=== PATIENT | male | born 1970 | race Caucasian/White ===

== ENCOUNTER 2020-06-02 14:39 | Outpatient (CLI) | payer OTHER, SELFPAY ==
--- NOTE | 2020-06-02 14:05 | DI.RAD_ITS ---
EXAM: XR STANDING ALIGNMENT CLINICAL HISTORY: bilateral knee DJD. TECHNIQUE: 2D digital imaging was performed. COMPARISON: CR XR KNEE RT 1V from 06/02/2020 CR XR KNEE LT 1V from 06/02/2020 FINDINGS: The hips are unremarkable. Marked degenerative changes are seen in the left knee characterized by zohra int space narrowing, subchondral sclerosis and periarticular spurring. Findings are most marked in t he medial femoral tibial and patellofemoral joints. Tiny ossific densities are seen superior to the patella and may be loose bodies. Marked degenerative changes are also noted in the right knee with j oint space narrowing, subchondral sclerosis and periarticular spurring. The findings are most marked at the patellofemoral joint. There is an ossific density superior to the knee which may represent a loose body. No significant leg length discrepancy is noted. IMPRESSION: Severe degenerative changes of the knees bilaterally. DATA REPOSITORY: RADIATION DOSE DELIVERED:
== END 2020-06-02 14:59 ==
PROVIDERS: PCP Physical Therapist; Referring Provider Physical Therapist; Visit Provider Physician Assistant
DX: M17.0 Bilateral primary osteoarthritis of knee (principal)
CPT/HCPCS: 73560; 77073

== ENCOUNTER 2022-11-29 10:50 | Outpatient (CLI) | payer OTHER, SELFPAY ==
--- NOTE | 2022-11-29 10:45 | DI.RAD_ITS ---
Exam(s) XR KNEE LT 1V XR STANDING ALIGNMENT XR KNEE RT 1V EXAM: XR STANDING ALIGNMENT and XR knee bilateral 1 V CLINICAL HISTORY: bilateral knee DJD. TECHNIQUE: 2D digital imaging was performed. Six images were obtained. COMPARISON: CR XR STANDING ALIGNMENT from 06/02/2020 CR XR KNEE LT 1V from 06/02/2020 CR XR KNEE RT 1V from 06/02/2020 FINDINGS: BONES: The hips are well maintained. There are marked degenerative changes again seen in the left kn ee characterized by joint space narrowing and periarticular spurring. The findings are most marked i n the patellofemoral joint and the medial femoral tibial joint. There is a joint effusion in the lef t knee. Dystrophic calcifications are seen superior to the patellofemoral joint on the lateral view. These may be loose bodies. There have increased in size compared to the prior examination. In the right knee there are marked degenerative changes present characterized by joint space narrowing and periarticular spurring. The findings are marked in the patellofemoral joint. The suprapatellar calc ifications have increased in size compared to the prior examination. There are genu varus deformitie s of the knees again seen bilaterally. The ankles are well maintained.There is no significant leg le ngth discrepancy. SOFT TISSUE: Normal. IMPRESSION: Marked degenerative changes of the knees bilaterally, left greater than right. DATA REPOSITORY: RADIATION DOSE DELIVERED:
== END 2022-11-29 10:51 | disposition home or self-care (01) ==
LOC: DIORS 10:50
PROVIDERS: PCP Physical Therapist; Visit Provider Physician Assistant
DX: M17.11 Unilateral primary osteoarthritis, right knee (principal); M17.12 Unilateral primary osteoarthritis, left knee
CPT/HCPCS: 73560; 77073

== ENCOUNTER 2023-02-15 07:19 | Observation (INO) | payer OTHER, SELFPAY ==
[2023-02-15] VITALS (9 sets, daily range): BP systolic 98–122; BP diastolic 63–88; PULSE 70–111; RESP 14–20; TEMP 36.2–36.9; O2SAT 92–97; BMI 30.4
[2023-02-15] MEDS: Celecoxib 200 MG CAP 400 MG PO (08:12)
[2023-02-15] MEDS: Acetaminophen 500 MG TAB 1000 MG PO ×2 (08:12→19:03)
[2023-02-15] MEDS: Gabapentin 300 MG CAP PO ×2 (08:12→21:09)
[2023-02-15] MEDS: Lactated Ringers 1,000 ML 80 ML IV ×2 (08:36→13:12)
--- NOTE | 2023-02-15 08:53 | W.ANESPRE ---
General Info Date of Service Date Performed: 02/15/23 Height: 5 ft 11 in Weight: 98.974 kg Body Mass Index (BMI): 30.4 Surgical Procedure: Operation Date: 02/15/23 09:50 Proposed Procedure Side Surgeon p Knee Total Arthroplasty Bilateral Cementless CR (maybe PS) Bilateral Kip Titus MD Meds Allergies and Home Medications Allergies Allergy/AdvReac Type Severity Reaction Status Date / Time No Known Allergies Allergy Verified 02/15/23 07:40 Home Medication Medication Instructions Recorded meloxicam 15 mg tablet (Mobic) 15 mg PO DAILY 06/02/20 acetaminophen 650 mg tablet 650 mg PO BID PRN 02/14/23 buprenorphine HCl 8 mg sublingual 8 mg sublingual DAILY 02/14/23 tablet bupropion HCl 150 mg 24 hr tablet, 75 mg PO DAILY 02/14/23 extended release clonidine HCl 0.2 mg tablet 0.2 mg PO DAILY 02/14/23 diphenhydramine HCl 50 mg tablet 50 mg PO DAILY 02/14/23 hydroxyzine HCl 50 mg tablet 50 mg PO DAILY 02/14/23 melatonin 3 mg tablet 3 mg PO DIRECTED 02/14/23 methylphenidate HCl 30 mg biphasic 30 mg PO DAILY 02/14/23 30-70 capsule,extended release pantoprazole 40 mg tablet,delayed 40 mg PO DAILY 02/14/23 release Current Visit Medications: Current Medications Generic Name Dose Route Start Last Admin Trade Name Ashleigh PRN Reason Stop Dose Admin Acetaminophen 1,000 mg 02/15/23 06:00 02/15/23 08:12 Acetaminophen 500 Mg Tab PO 03/17/23 05:59 1,000 mg PREOP TRAVIS Administration Acetaminophen 1,000 mg 02/15/23 08:30 Acetaminophen 500 Mg Tab PO 03/17/23 08:29 TID TRAVIS Aspirin 81 mg 02/15/23 08:30 Aspirin E.C. 81 Mg Tabec PO 03/17/23 08:29 BID TRAVIS Celecoxib 400 mg 02/15/23 06:00 02/15/23 08:12 Celecoxib 200 Mg Cap PO 03/17/23 05:59 400 mg PREOP TRAVIS Administration Celecoxib 200 mg 02/15/23 08:30 Celecoxib 200 Mg Cap PO 03/17/23 08:29 BID [facility] Dexamethasone 4 mg 02/15/23 08:30 Dexamethasone 4 Mg Tab PO 02/16/23 08:31 DAILY TRAVIS Docusate Sodium 100 mg 02/15/23 07:19 Docusate Sodium 100 Mg Cap PO 03/17/23 07:18 BID PRN PRN Constipation Gabapentin 300 mg 02/15/23 06:00 02/15/23 08:12 Gabapentin 300 Mg Cap PO 03/17/23 05:59 300 mg PREOP TRAVIS Administration Gabapentin 300 mg 02/15/23 22:00 Gabapentin 300 Mg Cap PO 03/17/23 21:59 HS TRAVIS Hydromorphone HCl 0.5 mg 02/15/23 07:19 Hydromorphone 2 Mg/Ml Syr IVP 03/17/23 07:18 Q2H PRN PRN Tranexamic Acid 1,000 mg/ 60 mls @ 360 mls/hr 02/15/23 06:00 Sodium Chloride IVPB 02/15/23 18:00 PREOP TRAVIS Tranexamic Acid 1,000 mg/ 60 mls @ 360 mls/hr 02/15/23 06:00 Sodium Chloride IVPB 02/15/23 18:00 DIRECTED TRAVIS Ringer's Solution 1,000 mls @ 80 mls/hr 02/15/23 06:00 02/15/23 08:36 IV 03/16/23 23:59 80 mls/hr INFUSION TRAVIS Administration Cefazolin Sodium/Dextrose 2 gm in 50 mls @ 100 mls/hr 02/15/23 06:00 Ancef Duplex IVPB 03/16/23 23:59 PREOP TRAVIS Cefazolin Sodium/Dextrose 1 gm in 50 mls @ 100 mls/hr 02/15/23 08:00 Ancef Duplex IVPB 02/16/23 00:29 Q8H TRAVIS IV Miscellaneous Supplies 1 each 02/15/23 06:00 Iv Access IV 03/16/23 23:59 DIRECTED TRAVIS Ondansetron HCl 4 mg 02/15/23 07:19 Ondansetron 4 Mg/2 Ml Vial IVP 03/17/23 07:18 Q6H PRN PRN Nausea Oxycodone HCl 0 mg 02/15/23 07:19 Oxycodone 5 Mg Tab PO 03/17/23 07:18 Q3H PRN PRN Pain Pantoprazole Sodium 40 mg 02/15/23 07:30 Pantoprazole 40 Mg Tabcr PO 03/17/23 07:29 DAILY@0730 [facility] Polyethylene Glycol 17 gm 02/15/23 07:19 Polyethylene Glycol 3350 17 Gm Packet PO 03/17/23 07:18 BID PRN PRN Constipation Sodium Chloride 0 ml 02/15/23 06:00 Normal Saline Flush 10 Ml Syr IV 03/16/23 23:59 PRN PRN Sodium Chloride 0 ml 02/15/23 06:00 Normal Saline 10 Ml Vial IJ 03/16/23 23:59 DIRECTED PRN Sterile Water 0 ml 02/15/23 06:00 Water,Injection,Sterile 10 Ml Vial IJ 03/16/23 23:59 DIRECTED PRN PFSH Active Problems Active Problems: Problem Status Onset Code Left knee DJD M17.12 Degenerative joint disease of right knee M17.11 Medical History Medical History ADHD Anxiety GERD (gastroesophageal reflux disease) Hx of opioid abuse Surgical History Surgical History Hx of adenoidectomy Hx of inguinal hernia repair Hx of meniscectomy of right knee Surgical history unknown Tobacco Smoking/Tobacco Use Status: Former Tobacco Use Alcohol Alcohol Intake: never Substance Use Substance use: Current Sobriety Vital Signs and Lab Results Vital Signs Most Recent Vital Signs in EMR: Most Recent Vital Signs Temp Pulse Resp BP Pulse Ox 36.6 C 79 16 119/83 95 02/15/23 07:43 02/15/23 07:43 02/15/23 07:43 02/15/23 07:43 02/15/23 07:43 Lab Results Blood Type / Crossmatch: No Data to Display Complete Blood Count: No Data to Display Complete Metabolic Panel: No Data to Display Liver Function Panel: No Data to Display Coagulation Panel: No Data to Display Cardiac Panel: No Data to Display Arterial Blood Gas: No Data to Display Venous Blood Gas: No Data to Display Pancreas Panel: No Data to Display Thyroid Panel: No Data to Display Infectious Disease: No Data to Display Blood Cultures: No Data to Display Toxicology Panel: No Data to Display Anesthesia Assessment and Plan Anesthesia History Personal History: No History of Anesthesia Complications Family History: Family History Unknown Exercise Tolerance Exercise Tolerance: Metabolic Equivalents>4 Pertinent Negatives Pertinent Negatives: No Symptoms of GERD Cardiac & Pulmonary Exam Cardiac Exam: Normal S1/S2 Heart Sounds Pulmonary Exam: Clear Bilateral Breath Sounds Implantable Cardiac Device Does patient have a Pacemaker or an ICD?: No Airway Exam Known Difficult Airway: No Mallampati Class: 1 Mouth Opening: Normal (> 3cm) Thyromental Distance: Greater than 3 cm Neck Range of Motion: Full ROM Neck Circumference: Normal Teeth Condition: Normal Dentition ASA Classification ASA Score: ASA 2 Emergency Case?: No NPO Status NPO Status: NPO Clears >2 hours, Solids >8 hours Anesthesia Plan Resuscitation Status: Full Code Anesthesia Technique: Spinal Anesthesia Airway Planned: Natural Airway Monitors Used: Standard Monitors
[2023-02-15] MEDS: Bupivacaine 0.5% Pres-Free 30 ML VIAL (09:26)
[2023-02-15] MEDS: Bupivacaine 0.25% Pres-Free 10 ML VIAL (09:36)
[2023-02-15] MEDS: ceFAZolin 2 GM/50 ML BAG IVPB (10:02)
--- NOTE | 2023-02-15 10:45 | W.ANESNERVE ---
Nerve Block Single Injection Procedure Date and Time Date Performed: 02/15/23 Procedure Start: 09:26 Location Where Procedure Performed Procedure Location: Day Surgery Unit Reason Performed: Postoperative Analgesia Requesting Provider: Kip Titus Timeout Performed Timeout Performed: Yes Monitoring Used ECG, Blood Pressure and SpO2 Sterility Sterility: Hand Hygiene, Surgical Cap, Surgical Mask, Sterile Gloves, Eye Protection and Chlorhexidine Sedation Given During Procedure Sedation Given (Indicate Dose Given): Versed IV Dose:: 5mg Patient Mental Status Patient Mental Status: Sedate with meaningful communication Nerve Block 1st Nerve Block: Laterality: Right Block Type: Adductor Canal Ultrasound Image Saved?: Yes Needle / Catheter Used: 100mm SonoPlex II Local Anesthetic Bolus (Indicate Dose Given): Lidocaine used for local infiltration of skin (1cc/2%), Injected in 3-5ml increments after negative blood aspiration and Bupivacaine 0.25% with Epinephrine (1:200,000) Dose:: 50mg/20cc Additives (Indicate Dose Given): Decadron Dose:: 4mg Ultrasound: Sterile probe cover and gel used Nerve Stimulator: Not Used Paresthesia: None Procedure Tolerated: No Complications Procedure Outcome: Successful Performed By: Chip Mendenhall 2nd Nerve Block: Laterality: Left Block Type: Adductor Canal Ultrasound Image Saved?: Yes Needle / Catheter Used: 100mm SonoPlex II Local Anesthetic Bolus (Indicate Dose Given): Lidocaine used for local infiltration of skin (1cc/2%) and Bupivacaine 0.25% with Epinephrine (1:200,000) Dose:: 20cc/50mg Additives (Indicate Dose Given): Decadron Dose:: 4mg Ultrasound: Sterile probe cover and gel used Nerve Stimulator: Not Used Paresthesia: None Procedure Tolerated: No Complications Procedure Outcome: Successful Performed By: Chip Mendenhall
--- NOTE | 2023-02-15 13:53 | W.ANESPOSTOP ---
Postoperative Evaluation Date, Time and Location Date Performed: 02/15/23 Time Performed: 13:53 Patient Location: PACU Vital Signs Most Recent Imported Vital Signs: Most Recent Vital Signs Temp Pulse Resp BP Pulse Ox 36.4 C L 95 H 18 108/74 94 02/15/23 13:50 02/15/23 13:50 02/15/23 13:50 02/15/23 13:50 02/15/23 13:50 Pain Score Most Recent Pain Score: Most Recent Pain Score Pain Level 0 02/15/23 09:30 Assessment Mental Status: Awake (Alert & Oriented to Patient Baseline) Airway and Respiratory Function: Patent airway with normal (patient baseline) respiratory exam Cardiovascular Function: Hemodynamically Stable Hydration Status: Adequately Hydrated Nausea & Vomiting: No Nausea or Vomiting Pain: Pt. Denies Any Pain Peripheral Nerve Block: Regional nerve block not resolved at time of post operative discharge
[2023-02-15] MEDS: Docusate Sodium 100 MG CAP PO (15:04)
[2023-02-15] MEDS: Normal Saline Flush 10 ML SYR IV (15:05)
[2023-02-15] MEDS: HYDROmorphone 2 MG/ML SYR 0.5 MG IVP ×2 (15:06→21:08)
--- NOTE | 2023-02-15 16:00 | IN_ITS ---
Date of service: 02/15/23 Time of Service: 15:18 PT Notes Visit Reasons: Bilateral knee DJD Physical Therapy Inpatient Initial Evaluation Date: 02/15/2023 Referring Doctor: AMANDA Preston PT Orders: PT CONSULT: S/p Ortho surgery Precautions: WBAT on B LE with AD. Patient Profile/Admitting Diagnosis: Soren is a 52-year-old male with degenerative joint disease of the knees and status post bilateral total knee arthroplasties on postoperative day 0. PMHX: All Active Problems?(Updated 06/02/20 @ 13:45 by Shi Caal) Degenerative joint disease of right knee (Chronic) Left knee DJD (Chronic) Social History/Home Situation: incarcerated. Uses B axillary crutches for all mobility ADLs. Equipment Owned/DME: B axillary crutches Subjective: Denies headache, chest pain, and lightheadedness throughout session. Reported 6/10 pain at rest and with walking. States that he has been struggling with the walking for over 3 years now and is happy with how much he is able to do so far. Wanted to have a bowel movement but initially was not able to, willing to try out walking to see if defecation will be facilitated afterwards. Objective: General Observation: Resting in bed. Officers Ronak and RT supervising patient. Shackles on B legs and R UE. IV through right UE. ADONSI wraps to B LE. Cryocuff to B knees. Mental Status: Alert and oriented as to person, place, time, and purpose. Able to pay attention, focus, and respond appropriately. Pain: 6/10 in B knees Vital Signs: Closely monitored by nursing staff ROM: Right Lower Extremity: Hip flexion WFL. Hip abduction WFL. Knee flexion about 20 degrees to 90 degrees. Knee extension about -20 degrees ankle dorsiflexion WFL. Ankle plantarflexion WFL. Left Lower Extremity: Knee flexion about 20 degrees to 90 degrees. Knee extension about -20 degrees ankle dorsiflexion WFL. Ankle plantarflexion WFL. Strength: Right Lower Extremity: Hip flexors 4/5. Hip abductors 4/5. Knee flexors 3-/5. Knee extensors 3-/5. Ankle dorsiflexors 5/5. Ankle plantarflexors 5/5. Left Lower Extremity: Hip flexors 4/5. Hip abductors 4/5. Knee flexors 3-/5. Knee extensors 3-/5. Ankle dorsiflexors 5/5. Ankle plantarflexors 5/5. Bed Mobility/Transfers: Supine to sit supervision Sit to stand contact guard assist using FWW Stand to sit stand by assist using FWW Bed to toilet seat stand by assist using FWW Toilet seat to bed stand by assist using FWW Gait: Okayed by chemical supervisor to remove shackles in B LE and UE for the walk. Instructed patient with level surface ambulation of 250 feet with stand by assist and wheelchair follow of Officer Ronak. Officer RT on stand by for safety protocol. Patient able to increase step height bilaterally during ambulation without increase in pain report. No LOB. No SOB. Balance: Static Sitting: Normal Dynamic Sitting: Normal Static Standing: Fair Dynamic Standing: Fair Special Tests: Mobility Limitations Standardized Measure [facility] AM-PAC 6 clicks Basic Mobility Inpatient Short Form: Raw Score: 22 CMS Score: 21% deficit Informed Consent/Education: Patient was instructed in purpose of PT consult and plan of care. Agreeable to proceed with established PT POC to achieve personal goals. Assessment: Patient able to manage level surface ambulation using front-wheeled walker but would like to try using bilateral axillary crutches tomorrow before he goes home. Wanted to retry see if he could defecate after the walk and so patient was instructed that he will be trained on HEP and stairs tomorrow morning before discharge. Patient presents with clinical signs and symptoms consistent with current/admitting diagnoses that have resulted to mobility limitations, gait instability, generalized weakness, and overall ADL decline as demonstrated by the following impairment level findings: 1. Decreased strength to B knee major muscle groups 2. Impaired sitting/standing balance 3. Impaired activity tolerance 4. Limitation of active joint range of motion in B knees 5. Pain at 6/10 in B knees Impairments are contributing to the following functional limitations: 1. Decline in bed mobility skills 2. Decline in transfer skills 3. Difficulty with ambulation without assistive device and physical assistance 4. Increased completion time for mobility ADL performance 5. Increased risk for falls 6. Difficulty with managing steps alone safely Patient is assessed as a [id number] moderate complexity based on the following: History: 52-year-old male with past medical history as indicated above Examination: Demonstrable impairment in strength, balance, and mobility level wi th underlying impairments and functional limitations as exhibited above as well as deficit score of 21% utilizing the [facility] Mobility Inpatient Short Form Presentation: Evolving Decision Makin moderate complexity Goals: Goals X1 week 1. Supine-Sit independent 2. Sit-Supine independent 3. Sit-Stand independent 4. Stand-Sit independent with bilateral axillary crutches 5. Bed-Chair independent with bilateral axillary crutches 6. Chair-Bed independent with bilateral axillary crutches 7. Independent gait on level surface with use of bilateral axillary crutches for at least 300 feet without report of pain nor dyspnea 8. Independent with home exercise program 9. Good static and dynamic standing balance/tolerance Plan of Care/Treatment Plan: 1-2x/day, 7 days/week x 1 week. Plan of care has been reviewed with the CREASING MACHINE OPERATOR providing the service under Physical Therapy direction. Initiate Physical Therapy intervention for pain management as needed, strengthening, bed mobility, transfers, gait, stairs, balance training, and use of assistive device. DISCHARGE RECOMMENDATIONS: [] Home with no services [] [] Home with services [specify] [X] Home with outpatient PT. Home when medically cleared by orthopedic surgeon. Recommend outpatient PT services in order to optimize functional mobility outcomes and facilitate return to independent community ambulation with no assistive device. [] SNF for continued rehabilitation [] [] Senior Living Care [] [] SNF versus LTC based on ability to participate and progress [] TREATMENT CODE/TIME: 60480 x 20 minutes, 34416 x 15 minutes beginning at 15:18 PM. Thank you for the opportunity to participate in the care of this patient. Paula Madera PT, DPT, CLT [facility] [place], [place]
[2023-02-15] MEDS: ceFAZolin 1 GM/50 ML BAG IVPB (16:08)
[2023-02-15] MEDS: oxyCODONE 5 MG TAB PO ×2 (16:19→19:03)
[2023-02-15] MEDS: Aspirin E.C. 81 MG TABEC PO (19:03)
[2023-02-15] MEDS: Celecoxib 200 MG CAP PO (19:04)
--- NOTE | 2023-02-15 20:35 | ROE_ITS ---
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 Depuy Attune Cementless Posterior Stabilized Femoral Component, Size 8 2. Depuy Attune Cementless Fixed Bearing Tibial Component, Size 8 3. Depuy Attune 8x8 PS/FB Poly 4. Depuy Attune Patellar Component, Size 38 LEFT KNEE: 1. Depuy Attune Cementless Posterior Stabilized Femoral Component, Size 8 2. Depuy Attune Cementless Fixed Bearing Tibial Component, Size 7 3. Depuy Attune 8x10 PS/FB Poly 4. Depuy Attune Patellar Component, Size 41 Indications: I have seen Soren in clinic for symptoms of bilateral knee arthritis with severe varus deformity, confirmed with radiographic findings. Soren has exhausted nonoperative methods and was having significant limitations in daily function and desired better function and less pain. I discussed the technical details of a knee replacement. I explained the risks of the procedure to include, but not limited to, bleeding, infection, pain, stiffness, fracture, damage to nerves and vessels, damage to muscles and tendons, loosening, need for repeat procedure, blood clot and cardiopulmonary demise. Despite these risks, he elected to proceed. Findings: There was significant signs of arthritis throughout the knee involving all 3 compartments but with severe varus deformity and medial tibial depression. Multiple loose bodies throughout both knees. Procedure Description: Soren was greeted in the preoperative holding area where the correct side was identified and marked. The consent was reviewed with the patient and signed. The history and physical was updated. All questions were answered. Preoperativ e mediacations were administered: Acetaminophen 1000mg, Celebrex 400mg, and Gabapentin 300mg. An adductor canal block was then administered by the anesthesia team in the PACU to both knees. Soren was taken back to the operating room. A spinal anesthestic was then administered. The patient was placed into the supine position on the operating room table. A nonsterile tourniquet was placed high onto the leg. Posts were placed for positioning during the procedure. All bony prominences were well padded. Prophylactic antibiotics in the form of Cefazolin were administered. 1g of Tranxemic Acid was given intravenously within 30 minutes of incision for the first knee, right side. Both legs were then prepped with Chloraprep and draped in a standard fashion with impervious stockinette. A second prep with Chloraprep was performed prior to application of Iodine impregnated skin protection for the first knee, right knee. A timeout to confirm correct identity, procedure, allergies, anesthesia, and medical concerns was performed. RIGHT KNEE: With the knee in some flexion, a midline incision was made overlying the knee. Full thickness skin flaps were raised once the extensor mechanism was encountered. These were raised medially and laterally. Any bleeding was controlled with electrocautery. Once the extensor mechanism was fully exposed, a medial parapatellar arthrotomy was performed in a flexed position. All bleeding from the arthrotomy and the geniculate arteries was coagulated. A medial subperiosteal peel was performed with electrocautery to the midcoronal plane. Due to the significant varus deformity the entire medial tibial plateau was exposed. The fat pad was removed while keeping the patellar tendon protected. The anterior distal femur synovium was removed for later visualization. The ACL and PCL were resected and the anterior horn of the lateral meniscus was transected. The knee was then flexed with the patella everted. There was a little bit of peelback from the proximal?medial aspect of the tubercle near the tubercle and therefore I placed a single smooth pin at this border to prevent any further rollback or peeling of the patellar tendon. This was watched carefully on the case and had no other changes. Large osteophytes from the tibia were removed. Large osteophytes from the femur were removed. There were multiple loose bodies, one being quite large in the suprapatellar space. A single starting pin was then placed 1cm anterior to the PCL insertion and the notch in the direction of the femoral head. The OrthoAlign device was applied over the pin. It was oriented to be in line with the epicondylar axis and the trochlear groove. It was then pinned into place. The navigation computer was then turned on and calibrated. The distal femur cut was set at 1 degree varus and 3.5 degrees flexion. The distal femur cutting guide then was positioned for a 9mm cut. The distal femur was cut with an oscillating saw while protecting the soft tissues. The tibia was then addressed. The OrthoAlign device was placed over the tibial tubercle and medial tibia and secured into position. Once again, OrthoAlign was calibrated and then set for a 2 degree varus cut and 6 degrees of posterior slope. With this locked into position, the cut thickness stylus was used to assess cut thickness. The medial side, most involved side, was set for a 1mm cut. This was then held in position and pinned into place with 2 additional pins and a cross pin for stability. The medial and lateral collateral ligaments were protected and the cut was performed. With this completed, it was assessed and noted to be of appropriate dimensions. The guide and OrthoAlign was removed. A spacer block was inserted and the knee was brought into extension to ensure enough space was present. The femur was then sized as a size 8. The Orthoalign gap balancing device was then placed in extension. This showed still some laxity in the lateral side. A full medial release was performed all the way around the back posterior medial corner of the knee releasing all adhesions and all osteophytes in that area of the tibia. The extension gap was once again checked which measured about 22 mm with about 3 to 4 mm of laxity towards the lateral side. The knee was then brought into 90 degrees of flexion and the ligament speech clinician was once again placed. Under the same amount of force the flexion gap was measured. The attune specific jig was placed and the flexion gap was made to match the extension gap. The 4-in-1 cutting guide was the placed. An ector wing was used to confirm appropriate position of the anterior cut to avoid notching. This cutting guide was ensured to be flush on the cut surface and then pinned into place with headed pins. While protecting the soft tissues, quad tendon, and collateral ligaments, the anterior and posterior cuts were performed with a saw. The central two pins were removed and the posterior and anterior chamfers were cut next. The notch-cutting guide was placed. This was pinned to lateralize the femoral component as much as possible while keeping it flush on the cut surface. This was then pinned into position. A saw was used to make the notch cut. A rasp smoothed the cut surfaces. The medial and lateral menisci were removed. A trial femoral component was then inserted, impacted down to the cut surfaces, and the lug holes were drilled. A provisional trial tibial component was placed and the knee was brought through range of motion. There was noted to be excelle nt extension and flexion. There was no significant instability. The patella was tracking without thumbs. A size 8mm polyethylene component provided the best range of motion and stability with less than 2mm gapping with medial and lateral stress and full extension without significant hyperextension. The tibial cut surface was fully exposed. The tibia was then sized as a 8. The tibia had been previously marked during trialing to correspond to the center of the tibial component to help with rotation. The trial was aligned to this albert, approximately rotated to the medial 1/3rd of the tibial tubercle. The trial was pinned into place. The tibia was prepared with a reamer and a keel punch and lug holes. The knee was then brought into extension and the patella was measured as 32mm. Using the patellar clamp and cut guide, this was resected to a flat surface with at least 13mm of thickness remaining. The size 38 patella fit the best. This was oriented and then clamped into position. The lugs were drilled. The trial components were removed. The final components were opened on the back table. The periosteal and capsular tissues, especially posteriorly, around the knee were then systematically injected with half, 50 cc, of a periarticular cocktail consisting of 246mg of Ropivacaine, 0.5mg of Epinephrine, 0.08mg of Clonidine, and 30mg of Ketorolac, diluted to 100cc. On the back table, with the implants opened, the cement was mixed. One batch of high viscosity cement was prepared with vacuum assistance. After the cement was ready a small amount was placed on the cut surface of the patella and the patellar button was clamped into position and held. While the cement was hardening, the cementless knee components were placed. Starting with the tibial component, the tibia was subluxed anteriorly and the lug holes of the component were lined up. The tibia was then impacted with an impactor and mallet until the tibial component was in contact with the tibia. Then, the femoral component was inserted. The lug holes were aligned and the component was impacted into position. The final polyethylene component was inserted. The knee was irrigated with Surgiphor Betadine solution. This was allowed to sit in the knee for 3 minutes and then it was thoroughly irrigated out with saline. After the cement had finally cured, approximately 15min, the clamp was removed from the patella and the knee was taken through range of motion. The patella was tracking with a no-thumbs technique. The capsule was then reapproximated with a No. 1 Vicryl at multiple locations. The capsule was finally closed with a No. 2 Stratafix, barbed suture. Deep tissues were then reapproximated with 0 Vicryl and 2-0 Vicryl. The skin was closed with a running 3-0 Monocryl in a subcuticular fashion. This was reinforced with skin glue. A Mepilex silver dressing was applied. Attention was then turned to the left knee. A second gram of TXA was administered. LEFT KNEE: The stockinette was open and the surgical area was exposed. This area was then prepped with ChloraPrep. Once it dried, Ioban dressing was placed. A midline incision was drawn on the skin. The skin was incised sharply with a knife. Full-thickness skin flaps were elevated over the extensor mechanism and the need for better visualization. Once the extensor mechanism was fully exposed, a medial parapatellar arthrotomy was performed in a flexed position. All bleeding from the arthrotomy and the geniculate arteries was coagulated. A medial subperiosteal peel was performed with electrocautery to the midcoronal plane. Due to the significant varus deformity the entire medial tibial plateau was exposed. The fat pad was removed while keeping the patellar tendon protected. The anterior distal femur synovium was removed for later visualization. The ACL and PCL were resected and the anterior horn of the lateral meniscus was transected. The knee was then flexed with the patella everted. Like the right side there is some slight amount of peel from the edge of the patellar tendon and its fascia and therefore single smooth pin was placed in this region which prevented any further rollback as it was watched carefully during the case. Large osteophytes from the tibia were removed. Large osteophytes from the femur were removed. There was an additional groove or divot within the medial tibial plateau making the varus deformity even more extreme. There were also multiple osseous loose bodies throughout the knee which were removed. A single starting pin was then placed 1cm anterior to the PCL insertion and the notch in the direction of the femoral head. The OrthoAlign device was applied over the pin. It was oriented to be in line with the epicondylar axis and the trochlear groove. It was then pinned into place. The navigation computer was then turned on and calibrated. The distal femur cut was set at 1 degree of varus and 3-1/2 degrees of flexion. The distal femur cutting guide then was positioned for a 9mm cut. The distal femur was cut with an oscillating saw while protecting the soft tissues. The tibia was then addressed. The OrthoAlign device was placed over the tibial tubercle and medial tibia and secured into position. Once again, OrthoAlign was calibrated and then set for a 2-1/2 degrees varus cut and 6 degrees of posterior slope. With this locked into position, the cut thickness stylus was used to assess cut thickness. The medial side, most involved side, was set for a 1mm cut. This was then held in position and pinned into place with 2 additional pins and a cross pin for stability. The medial and lateral collateral ligaments were protected and the cut was performed. With this completed, it was assessed and noted to be of appropriate dimensions. The guide and OrthoAlign was removed. A spacer block was inserted and the knee was brought into extension to ensure enough space was present. The femur was then sized as a size 8. The Orthoalign gap balancing device was then placed in extension. The extension gap was measured as 23mm. This was done after a complete medial release was performed along with an aggressive resection of any medial osteophytes and medial scarring. The knee was then brought into 90 degrees of flexion and the ligament speech clinician was once again placed. Under the same amount of force the flexion gap was measured. The attune specific jig was placed and the flexion gap was made to match the extension gap. The 4-in-1 cutting guide was the placed. An ector wing was used to confirm appropriate position of the anterior cut to avoid notching. This cutting guide was ensured to be flush on the cut surface and then pinned into place with headed pins. While protecting the soft tissues, quad tendon, and collateral ligaments, the anterior and posterior cuts were performed with a saw. The central two pins were removed and the posterior and anterior chamfers were cut next. The notch-cutting guide was placed. This was pinned to lateralize the femoral component as much as possible while keeping it flush on the cut surface. This was then pinned into position. A saw was used to make the notch cut. A rasp smoothed the cut surfaces. The medial and lateral menisci were removed. A trial femoral component was then inserted, impacted down to the cut surfaces, and the lug holes were drilled. A provisional trial tibial component was placed and the knee was brought through range of motion. The polyethylene was trialed until there was good flexion and extension with excellent stability to the medial and lateral collaterals. The patella was tracking without thumbs. A size 10mm polyethylene component provided the best range of motion and stability. He did seem to be tighter in extension than I would like although full extension was obtained he bounced with some recoil. I did some additional releases of the posterior capsule which seemed to help this out. However, there was some increased laxity with an 8 mm insert in the flexion space and therefore I stuck with a 10 mm insert excepting some tightness with extension although there was no flexion with axial loading of the heel. The tibial cut surface was fully exposed. The tibia was then sized as a 7. The tibia had been previously marked during trialing to correspond to the center of the tibial component to help with rotation. The trial was aligned to this albert, approximately rotated to the medial 1/3rd of the tibial tubercle. The trial was pinned into place. The tibia was prepared with a reamer and a keel punch and lug holes. The knee was then brought into extension and the patella was measured as 32mm. Using the patellar clamp and cut guide, this was resected to a flat surface with at least 13mm of thickness remaining. The size 41 patella fit the best. This was oriented and then clamped into position. The lugs were drilled. The trial components were removed. The final components were opened on the back table. The periosteal and capsular tissues, especially posteriorly, around the knee were then systematically injected with a periarticular cocktail consisting of 246mg of Ropivacaine, 0.5mg of Epinephrine, 0.08mg of Clonidine, and 30mg of Ketorolac, diluted to 100cc. On the back table, with the implants opened, the cement was mixed. One batch of high viscosity cement was prepared with vacuum assistance. After the cement was ready a small amount was placed on the cut surface of the patella and the patellar button was clamped into position and held. While the cement was hardening, the cementless knee components were placed. Starting with the tibial component, the tibia was subluxed anteriorly and the lug holes of the component were lined up. The tibia was then impacted with an impactor and mallet until the tibial component was in contact with the tibia. Then, the femoral component was inserted. The lug holes were aligned and the component was impacted into position. The final polyethylene component was inserted. The knee was irrigated with Surgiphor Betadine solution. This was allowed to sit in the knee for 3 minutes and then it was thoroughly irrigated out with saline. After the cement had finally cured, approximately 15min, the clamp was removed from the patella and the knee was taken through range of motion. The patella was tracking with a no-thumbs technique. The capsule was then reapproximated with a No. 1 Vicryl at multiple locations. The capsule was finally closed with a No. 2 Stratafix, barbed suture. Deep tissues were then reapproximated with 0 Vicryl and 2-0 Vicryl. The skin was closed with a running 3-0 Monocryl in a subcuticular fashion. This was reinforced with skin glue. A Mepilex silver dressing was applied along with a [id number] ADONIS wrap to both knees. A CryoCuff was applied. Soern was transferred to the hospital bed without difficulty an suffering no apparent complication. Soren has a good prognosis. Physical therapy will start today and without restrictions, weight-bearing as tolerated. Aspirin 81mg BID will be used for DVT prophylaxis. Pain management may be difficult with his history and his current Suboxone use.
[2023-02-15] MEDS: diphenhydrAMINE 25 MG CAP PO (21:09)
[2023-02-15] MEDS: Melatonin 3 MG TAB PO (21:09)
[2023-02-15] MEDS: Polyethylene Glycol 3350 17 GM PACKET PO (21:12)
[2023-02-15] MEDS: Lactated Ringers 1,000 ML 1000 ML IV (22:08)
[2023-02-15] MEDS: oxyCODONE 5 MG TAB 15 MG PO (22:16)
[2023-02-16] MEDS: ceFAZolin 1 GM/50 ML BAG IVPB ×2 (00:17→07:46)
[2023-02-16] MEDS: Ondansetron 4 MG/2 ML VIAL IVP ×2 (01:06→06:15)
[2023-02-16] MEDS: oxyCODONE 5 MG TAB 15 MG PO ×2 (05:20→13:38)
[2023-02-16 05:24] VITALS: BP 123/71; PULSE 115; RESP 18; O2SAT 99
[2023-02-16 07:19] VITALS: BP 117/70; PULSE 98; RESP 18; TEMP 36.3; O2SAT 97
[2023-02-16] MEDS: Dexamethasone 4 MG TAB PO (07:44)
[2023-02-16] MEDS: cloNIDine 0.1 MG TAB 0.2 MG PO (07:44)
[2023-02-16] MEDS: hydrOXYzine HCL 50 MG TAB PO (07:45)
[2023-02-16] MEDS: Acetaminophen 500 MG TAB 1000 MG PO ×2 (07:45→13:38)
[2023-02-16] MEDS: Normal Saline Flush 10 ML SYR IV ×2 (07:46→11:09)
[2023-02-16] MEDS: Celecoxib 200 MG CAP PO (07:46)
[2023-02-16] MEDS: Aspirin E.C. 81 MG TABEC PO (07:46)
[2023-02-16] MEDS: Pantoprazole 40 MG TABCR PO (07:46)
[2023-02-16] MEDS: buPROPion 75 MG TAB PO (08:10)
--- NOTE | 2023-02-16 10:45 | W.PM.DS.N ---
Date of service: 02/16/23 Time of Service: 10:49 DS: Diagnosis Discharge Diagnosis (1) Left knee DJD: Status: Resolved (2) Degenerative joint disease of right knee: Status: Resolved Discharge Plan Disposition Patient Disposition: [facility] Condition: Good Discharge Details Reason For Visit: Bilateral knee DJD Admit Date/Time: 02/15/23 07:19 Admit Provider: Kip Titus Attending Provider: Kip Titus Primary Care Provider: Paolo Resendez Hospital Course Hospital Course: Patient was admitted to the medical/surgical floor following the procedure. The surgery was tolerated well without any notable medical, surgical, or anesthetic complications. Mobilization began postoperatively. He was voiding spontaneously. Vitals were stable. Physical therapy worked with the patient and was cleared for discharge home. No acute medical issues. Pain was controlled on oral regimen. Home Meds and New Rx's Prescriptions: New celecoxib [Celebrex] 200 mg capsule 200 mg PO BID PRNQty: 60 0RF Rx Instructions: Take one tablet twice daily for pain and inflammation aspirin 81 mg tablet,delayed release (DR/EC) 81 mg PO BID 30 Days Qty: 60 0RF acetaminophen 500 mg tablet 1,000 mg PO Q8H PRN Qty: 90 0RF Rx Instructions: Take two tablets up to every 8 hours as needed for pain dexamethasone 4 mg tablet 4 mg PO DAILY Qty: 2 0RF Rx Instructions: Take one tablet once daily for two days docusate sodium [Colace] 100 mg capsule 100 mg PO BID Qty: 30 0RF gabapentin 300 mg capsule 300 mg PO QHS Qty: 14 0RF Rx Instructions: Take one tablet at bedtime oxycodone 15 mg tablet 15 mg PO Q4H PRN (Reason: pain) Qty: 30 0RF Rx Instructions: Take one tab every 4 hours as needed. Start to stretch to 6 hours as pain improves. Continued diphenhydramine HCl 50 mg Tablet 50 mg PO DAILY hydroxyzine HCl 50 mg Tablet 50 mg PO DAILY melatonin 3 mg Tablet 3 mg PO DIRECTED clonidine HCl 0.2 mg Tablet 0.2 mg PO DAILY pantoprazole 40 mg Tablet,Delayed Release (Dr/Ec) 40 mg PO DAILY bupropion HCl 150 mg Tablet Extended Release 24 Hr 75 mg PO DAILY methylphenidate HCl 30 mg Capsule, Er Biphasic 30-70 30 mg PO DAILY buprenorphine HCl 8 mg Tablet, Sublingual 8 mg SUBLINGUAL DAILY Discontinued meloxicam [Mobic] 15 mg tablet 15 mg PO DAILY acetaminophen 650 mg Tablet 650 mg PO BID PRN Discharge Instructions Additional Instructions: Total Knee Discharge Instructions Activity: The most important activity is to walk and to work on gentle motion (both flexion and extension). You should try to take short walks a few times a day. It is important that when resting you work on keeping the knee straight. Avoid putting a pillow behind the knee as this will encourage flexion. Work on range of motion exercises as provided by Physical Therapy and Dr. Titus. - Physical therapy should start within 2 weeks, 2-3 times per week. For the first 6 weeks post-op the focus is on range of motion, isometric quad strength and ambulation. Walker for assistance at all times but may be discontinued when feeling stable. Printed exercises may be performed up to 3 times per day as symptoms allow. - There should be some space and time to walk at least 3-4 times per day. Some days exercises in the bed may be sufficient. - You should wear the SHALINI hose on both legs for 2 weeks. You may remove these at night. You may also use any compression sock in place of the SHALINI hose. Dressing: We recommend wearing the SHALINI stocking to help control swelling. You may remove these at night and discontinue when you desire but usually by 2 weeks. Keep the surgical dressing in place for at least one week (although I would recommend 2 weeks if not soiled or coming off). The dressing may be removed at that time and replaced with light gauze and tape or nothing. The wound and dressing may get wet after 3 days but avoid soaking the dressing or otherwise it will need to be changed. Many people prefer covering the dressing with cling wrap (saran wrap) to minimize it from getting soaked. If it gets wet, just pat dry. If it starts to peel off then it will need to be changed. Medications: - You should take Tylenol and anti-inflammatory Celebrex as your primary pain control medications. If the Celebrex is too expensive or not covered, please call the office for another alternative (Advil/Ibuprofen or Naproxen/Aleve) - You have been prescribed a stronger pain medication Oxycodone for breakthrough pain, take as needed as prescribed. 15mg Oxycodone will be the initial dose. This should be taken as needed and as pain improves stretched to every 6 hours. At that point, I would recommend going down to 10mg tablets, expecting a titration in Oxycodone to take about 2-3 weeks. - You have also been prescribed a stomach acid reduction agent Pantoprozole to help reduce stomach acid and reflux. - You have been prescribed Gabapentin to take at night for restlessness and nerve pain. - You will be taking Aspirin 81mg twice a day for DVT prevention unless instructed otherwise. - You have also been prescribed Decadron to take to control post-operative nausea and pain. You will start this tomorrow. - If you have constipation you should take Colace (which has been prescribed) or Miralax (which is available [id number]). It takes most people 3-4 days to have a bowel movement. Follow-up: 2-4 weeks If you have any acute concerns or questions, please do not hesitate to contact the office at [phone]. You may contact Dr. Titus with any questions after hours through the hospital at [phone] or on his cell phone at [phone]. Stand Alone Forms: Nursing Discharge Form Referrals: Kip Titus MD [ [facility] STAFF PHYSICIAN] - 03/04/23 9:45 am Activity:: Activity as Tolerated Equipment/Supplies:: Walker Diet:: As Tolerated Discharge Orders Discharge Orders: Discharge Order (Routine); Ordered 02/16/23 Ordered By: Kip Titus DS: Summary Time Spent with Patient providing and/or coordinating discharge services: Less than 30 minutes Status at Discharge Functional status at discharge: uses cane/walker Overall status at discharge: patient is progressing back to baseline Mental Status: mental status grossly normal Speech and Movement: speech and movement normal Mood: congruent mood Affect: normal affect Exam Narrative Exam Narrative: Sitting in the bed. Bilateral knees - Dressings c/d/i. Able to SLR. +ADF/APF/EHL/FHL. SILT DP/SP/Tib. Psych Mental Status: mental status grossly normal Speech and Movement: speech and movement normal Mood: congruent mood Affect: normal affect DS: Data Vitals/I&O Vitals and I&O: Vital Signs Temperature 97.9 F 02/15/23 07:43 Pulse 79 02/15/23 07:43 Pulse Rhythm Regular 02/15/23 07:43 Respiratory Rate 16 02/15/23 07:43 Respiratory Depth Normal 02/15/23 07:43 Blood Pressure 119/83 02/15/23 07:43 Pulse Oximetry 95 02/15/23 07:43 Oxygen Delivery Method Room Air 02/15/23 07:43 Oxygen Flow Rate 0 02/15/23 07:43 Pain Level 5 02/15/23 07:43 Intake & Output 02/14/23 02/14/23 02/15/23 11:59 23:59 11:59 Weight 215 lb 218 lb 3.2 oz PFSH All Active Problems History of right knee joint replacement (Acute 02/15/23) History of left knee replacement (Acute 02/15/23) Medical History ADHD Anxiety GERD (gastroesophageal reflux disease) Hx of opioid abuse Surgical History Hx of adenoidectomy Hx of inguinal hernia repair Hx of meniscectomy of right knee Surgical history unknown Social History Smoking/Tobacco Use Status: Former Tobacco Use Quit Date: 12/30/18 Tobacco: How many years used: 15 Smoking risk assessment performed?: Yes Alcohol Intake: never Drug use: Current Sobriety Housing: other Time Spent with Patient Time Spent with Patient: <45 minutes Time was spent: ordering medications,tests, procedures, referring, communicating with other health care management coordinator, counseling the patient and care coordination
[2023-02-16] MEDS: HYDROmorphone 2 MG/ML SYR 1 MG IVP (11:07)
--- NOTE | 2023-02-16 13:16 | PT.INDS ---
Date of service: 02/16/23 Time of Service: 12:46 PT Notes Visit Reasons: Bilateral knee DJD Physical Therapy Inpatient Discharge Summary Date: 02/16/2023 Dates of Service: 02/15/2023 through 02/16/2023 Referring Doctor: AMANDA Preston PT Orders: PT CONSULT: S/p Ortho surgery Precautions: WBAT on B LE with AD. Patient Profile/Admitting Diagnosis:? Soren is a 52-year-old male with degenerative joint disease of the knees and status post bilateral total knee arthroplasties on postoperative day 0. PMHX: All Active Problems?(Updated 06/02/20 @ 13:45 by Shi Caal) Degenerative joint disease of right knee (Chronic) Left knee DJD (Chronic) Social History/Home Situation: incarcerated.? Uses B axillary crutches for all mobility ADLs.? Equipment Owned/DME: B axillary crutches Subjective: Denies headache, chest pain, and lightheadedness throughout session.? Motivated to get back to being independent without any assistive device. Objective: General Observation: Resting in bed.? 2 officers present in room.? Shackles on B legs and R UE.? IV through right UE.? ADONIS wraps to B LE.? Cryocuff to B knees.? Mental Status: Alert and oriented as to person, place, time, and purpose. Able to pay attention, focus, and respond appropriately. Pain: 5-6/10 in? B knees Vital Signs: Closely monitored by nursing staff ROM: Right Lower Extremity: Hip flexion WFL. Hip abduction WFL. Knee flexion about 20 degrees to 90 degrees.? Knee extension about -20 degrees ankle dorsiflexion WFL. Ankle plantarflexion WFL. Left Lower Extremity: Knee flexion about 20 degrees to 90 degrees.? Knee extension about -20 degrees ankle dorsiflexion WFL. Ankle plantarflexion WFL. Strength: Right Lower Extremity: Hip flexors 4/5. Hip abductors 4/5. Knee flexors 3-/5. Knee extensors 3-/5. Ankle dorsiflexors 5/5. Ankle plantarflexors 5/5. Left Lower Extremity: Hip flexors 4/5. Hip abductors 4/5. Knee flexors 3-/5. Knee extensors 3-/5. Ankle dorsiflexors 5/5. Ankle plantarflexors 5/5. Bed Mobility/Transfers: Supine to sit independent Sit to stand independent assist using FWW Stand to sit independent using FWW Bed to toilet seat independent using FWW Toilet seat to bed independent using FWW Gait: Modified independent with FWW for 300 feet. Modified independent with bilateral axillary crutches for 300 feet. Reported pain at 5-6/10 in [place] r[place] that resolved with rest. Balance: Static Sitting: Normal Dynamic Sitting: Normal Static Standing: Fair Dynamic Standing: Fair Special Tests: Mobility Limitations Standardized Measure [facility] 6 clicks Basic Mobility Inpatient Short Form: Raw Score:? ? ? 24 ? CMS Score: 0% deficit? ? ? Informed Consent/Education:? Patient was instructed in safe HEP performance as listed below. Patient was also provided with written/illustrated copy of HEP to maximzie complaiance and mastery. Access Code: [email or web address] URL: [email or web address] Date: 02/16/2023 Prepared by: Paula Madera Exercises - Supine Quad Set - 1 x daily - 7 x weekly - 1 sets - 10 reps - 5 hold - Supine Heel Slide - 1 x daily - 7 x weekly - 1 sets - 10 reps - 5 hold - Supine Ankle Pumps - 1 x daily - 7 x weekly - 1 sets - 10 reps - 5 hold - Small Range Straight Leg Raise - 1 x daily - 7 x weekly - 1 sets - 10 reps - 5 hold - Seated March - 1 x daily - 7 x weekly - 1 sets - 10 reps - 5 hold Assessment: Patient able to manage level surface ambulation using bilateral axillary crutches independently. He demonstrates good understanding of HEP and good safety awareness in using AD for all mobility ADLs. Goals: Goals X1 week 1. Supine-Sit independent MET 2. Sit-Supine independent MET 3. Sit-Stand independent MET 4. Stand-Sit independent with bilateral axillary crutches MET 5. Bed-Chair independent with bilateral axillary crutches MET 6. Chair-Bed independent with bilateral axillary crutches MET 7. Independent gait on level surface with use of bilateral axillary crutches for at least 300 feet without report of pain nor dyspnea MET 8. Independent with home exercise program MET 9. Good static and dynamic standing balance/tolerance MET DISCHARGE RECOMMENDATIONS: [] ? Home with no services [] [] ? Home with services [specify] [X] ? Home with outpatient PT. Home when medically cleared by orthopedic surgeon.? Recommend outpatient PT services in order to optimize functional mobility outcomes and facilitate return to independent community ambulation with no assistive device. [] ? SNF for continued rehabilitation [] [] ? [facility] [] [] ? SNF versus LTC based on ability to participate and progress [] TREATMENT CODE/TIME: Session 1--34577 x 27 minutes beginning at 10:08 AM. Session 2--[id number] x 18 minutes beginning at 12:46 PM Thank you for the opportunity to participate in the care of this patient. Paula Madera PT, DPT, CLT [facility] [place], [place]
--- NOTE | 2023-02-16 17:42 | PDOC.CMPRO ---
Date of service: 02/16/23 Time of Service: 17:42 Care Management Progress Note Progress Note Text Progress Note Text: CHANDANA met with Soren prior to his discharge today to inquire about his needs as he transitions back to [facility]. Soren stated that he will need any orders written out in his discharge instructions, in order for the facility to be able to accommodate them. CHANDANA communicated with MD, who stated that he will provide exercises that Soren can work on himself, as well as a plan for PT to start within two weeks, 2-3 times per week. He also provided instructions for follow up. This was clearly written out in his discharge summary, which will be provided to the facility. Security team provided by [facility] were present in the room, and stated that transportation will be provided as soon as his discharge is complete.
== END 2023-02-16 14:10 ==
LOC: SUR 09:36 → MS 14:12
PROVIDERS: Admitting Provider Student in an Organized Health Care Education/Training Program; PCP Physical Therapist; Visit Provider Student in an Organized Health Care Education/Training Program
PROC: 0SRC0JZ Replacement of Right Knee Joint with Synthetic Substitute, Open Approach (ICD-10-PCS; CPT 27447; principal; 2023-02-15 09:30)
DX: M17.0 Bilateral primary osteoarthritis of knee (principal); K21.9 Gastro-esophageal reflux disease without esophagitis; Z79.899 Other long term (current) drug therapy; Z87.891 Personal history of nicotine dependence; F10.11 Alcohol abuse, in remission; F41.9 Anxiety disorder, unspecified; F90.9 Attention-deficit hyperactivity disorder, unspecified type
CPT/HCPCS: 27447; 20985; 76942; 96361; 96365; 96375; 97110; 97530; G0378; J0171; J0690; J1100; J1170; J2001; J2250; J2405; J2704; J3490; J8540